=== PATIENT | male | born 1945 | race African-American/Black ===

== ENCOUNTER 2017-06-24 08:00 | Emergency (ER) | payer OTHER, MEDICARE ==
[~2017-06-24] VITALS: Ht 180.3 cm; Wt 88.5 kg
[~2017-06-24 08:00] MED LIST: ASPI325T24; ENAL5TAB98 PO; GLUCTAB; IMDU30TA; LEVEMIR SQ; LORT5TAB PO; PREG75 PO; ROSU20; TOPR50TA
[2017-06-24 08:01] VITALS: BP 140/67; PULSE 67; RESP 16; TEMP 98.1; O2SAT 98
[2017-06-24] MEDS ORDERED: METO1TAB9 PO (09:35)
[2017-06-24] MEDS ORDERED: METF500T PO (09:35)
[2017-06-24] MEDS ORDERED: ASPI-146 PO (09:35)
[2017-06-24] MEDS ORDERED: LEVEMIR SQ (09:35)
[2017-06-24] MEDS ORDERED: VASO10TA8 PO (09:35)
[2017-06-24] MEDS ORDERED: LYRI75CA PO (09:35)
[2017-06-24] MEDS ORDERED: ISOS30TA3 PO (09:35)
[2017-06-24] MEDS ORDERED: ROSU20 PO (09:35)
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
[2017-06-24] MEDS ORDERED: NAPR500T2 PO (09:43)
[2017-06-24] MEDS ORDERED: CYCL10TA PO (09:43)
[2017-06-24] MEDS ORDERED: KETOROLAC TROMETHAMINE 60 MG/2 ML (IM) VIAL IM ONE (10:00)
== END 2017-06-24 10:18 | disposition home or self-care (01) ==
LOC: NEPK 08:00
DX: S16.1XXA Strain of muscle, fascia and tendon at neck level, initial encounter (principal); M62.830 Muscle spasm of back; E11.9 Type 2 diabetes mellitus without complications; I10 Essential (primary) hypertension; V49.49XA Driver injured in collision with other motor vehicles in traffic accident, initial encounter
CPT/HCPCS: 96372; 99284; J1885